=== PATIENT | male | born 1975 | race African-American/Black ===

== ENCOUNTER 2021-07-03 11:42 | Outpatient (CLI) | payer BC | END 2021-07-03 11:43 | disposition home or self-care (01) | LOC: BICRAD 11:42 | PROVIDERS: ATTEND Family Medicine | DX: M25.561 Pain in right knee (principal); M25.562 Pain in left knee; G89.4 Chronic pain syndrome; M25.551 Pain in right hip; M47.816 Spondylosis without myelopathy or radiculopathy, lumbar region; M16.11 Unilateral primary osteoarthritis, right hip; M17.0 Bilateral primary osteoarthritis of knee | CPT/HCPCS: 72100 ==